=== PATIENT | male | born 1950 | race Caucasian/White ===

== ENCOUNTER 2016-09-16 05:38 | Inpatient (IN) | payer OTHER ==
[2016-09-16] MEDS ORDERED: LIDOCAINE 1% 2 ML INJ ONE (06:11)
[2016-09-16] MEDS ORDERED: LIDOCAINE 1% 5 ML SDV ID PRN (06:20)
[2016-09-16] MEDS ORDERED: LR 1,000 ML IV ONE (06:20)
[2016-09-16 06:38] LABS: % IMMATURE GRANULYOCYTES 0.3 % (0.0-1.1); ABSOLUTE IMMATURE GRANULOCYTES 0.03 10^3/uL (0.00-0.10); ADD DIFF? NO; ADD MORPH? NO; ADD SCAN? NO; ATYPICAL LYMPHOCYTE FLAG 10 (0-99); FRAGMENT RBC FLAG 0 (0-99); HEMATOCRIT 42.6 % (40.0-51.0); HEMOGLOBIN 14.7 g/dL (13.7-17.5); LEFT SHIFT FLG 0 (0-99); LIPEMIA HEMOLYSIS FLAG 90 (0-99); MEAN CELL HEMOGLOBIN 31.2 pg (27.9-34.1); MEAN CELL HEMOGLOBIN CONCENTR. 34.5 g/dL (32.4-36.7); MEAN CELL VOLUME 90.4 fL (81.5-99.8); MEAN PLATELET VOLUME 10.4 fL (8.7-11.7); PLATELET CLUMPS FLAG 10 (0-99); PLATELET COUNT 245 10^3/uL (150-400); RED BLOOD CELL COUNT 4.71 10^6/uL (4.40-6.38); RED CELL DISTRIBUTION WIDTH 11.8 % (11.5-15.2)
[2016-09-16] MEDS ORDERED: PROPOFOL 200 MG/20 ML VIAL ONE ×6 (06:59→09:25)
[2016-09-16] MEDS ORDERED: DEXAMETHASONE 4 MG/ML VIAL IVP ONE (07:00)
[2016-09-16] MEDS ORDERED: FAMOTIDINE 20 MG TAB PO ONE (07:00)
[2016-09-16] MEDS ORDERED: CHLORHEXIDINE GLUC HIBICLENS 118 ML BTL TP ONE (07:00)
[2016-09-16] MEDS ORDERED: TRANEXAMIC ACID 700 MG in NS 100 ML IV ONE (07:00)
[2016-09-16] MEDS ORDERED: ACETAMINOPHEN 325 MG TAB PO ONE (07:00)
[2016-09-16] MEDS ORDERED: ROPI/epiNEPH/KETOROLAC JOINT COCKTAIL IU ONE (07:00)
[2016-09-16] MEDS ORDERED: VANCOMYCIN HCL/NORMAL SALINE 250 ML IV ONE ×2 (07:00→19:30)
[2016-09-16] MEDS ORDERED: ONDANSETRON 4 MG/2 ML VIAL IVP PRN ×2 (07:08→10:09)
[2016-09-16] MEDS ORDERED: ONDANSETRON DISINTEGRATING 4 MG TAB PO PRN ×2 (07:08→10:09)
[2016-09-16] MEDS ORDERED: MIDAZOLAM 2 MG/2 ML VIAL ONE (07:22)
[2016-09-16] MEDS ORDERED: ceFAZolin 1 GM/5 ML SYR ONE (07:46)
[2016-09-16] MEDS ORDERED: BISACODYL 10 MG SUPP PR PRN (10:09)
[2016-09-16] MEDS ORDERED: LACTULOSE 20 GM/30 ML UDCUP PO PRN (10:09)
[2016-09-16] MEDS ORDERED: TEMAZEPAM 15 MG CAP PO PRN (10:09)
[2016-09-16] MEDS ORDERED: PHARMACY PAIN CONSULT 1 EA MISC PRN (10:09)
[2016-09-16] MEDS ORDERED: CYCLOBENZAPRINE 10 MG TAB PO PRN (10:09)
[2016-09-16] MEDS ORDERED: POLYETHYLENE GLYCOL 3350 17 GM PKT PO PRN (10:09)
[2016-09-16] MEDS ORDERED: DIPHENOXYLATE/ATROPINE LOMOTIL 1 TAB PO PRN (10:09)
[2016-09-16] MEDS ORDERED: diphenhydrAMINE 25 MG CAP PO PRN (10:09)
[2016-09-16] MEDS ORDERED: MAGNESIUM HYDROXIDE 30 ML UDCUP PO PRN (10:09)
[2016-09-16] MEDS ORDERED: fentaNYL 100 MCG/2 ML INJ ONE (10:10)
--- NOTE | 2016-09-16 10:18 | SUROPNOTE ---
[facility] Operative Report - Surgery preop diagnosis: severe osteoarthritis left knee postop diagnosis: same surgeon: Adama House MD Asst: Ellen Mcfadden Anesthesia: spinal Procedure: Left total knee arthroplasty Complications: none Patient tolerated procedure well, stable to PACU
[2016-09-16] MEDS ORDERED: LR 1,000 ML IV SCH (10:30)
[2016-09-16] MEDS ORDERED: HYDROmorphONE/DILAUDID 1 MG/ML SYR ONE (10:49)
[2016-09-16] MEDS: OXYCODONE/APAP 5/325 TAB PO PRN ×5 (11:48→23:06)
--- NOTE | 2016-09-16 12:18 | GOP ---
[f rep st] OPERATIVE REPORT DATE OF OPERATION: 09/16/2016 SURGEON: Adama House MD [employer] SUPERVISOR: Ellen Mcfadden. Use of a pediatric physician assistant was required for retraction and surgical exposure. ANESTHESIA: Spinal. PREOPERATIVE DIAGNOSIS: Severe osteoarthritis of the left knee. POSTOPERATIVE DIAGNOSIS: Severe osteoarthritis of the left knee. PROCEDURE PERFORMED: Left total knee arthroplasty. FINDINGS: INDICATIONS: This is an active 66-year-old male with progressive and severe pain and disability in his left knee secondary to progressive osteoarthritis. He has failed nonoperative treatment and is being admitted for surgical care. DESCRIPTION OF PROCEDURE: After an adequate spinal anesthetic was obtained and IV antibiotics were administered, the patient's left lower extremity was prepped and draped in the usual sterile fashion . The limb was exsanguinated with the Esmarch and tourniquet elevated to 300 mmHg of pressure. The [employer] leg holding device was utilized with adequate padding. A midline incision was placed over the left knee, well lateral to his previous open meniscectomy sca r at age 17. Dissection was carried down through the subcutaneous tissues. Hemostasis was obtained using electrocautery. A medial arthrotomy was performed. The patella was dislocated laterally and the joint inspected. There was severe upmu-ft-[id number] osteoarthritis involving the medial and patello femoral compartments with osteophytes. These were removed. Medial and lateral meniscal remnants we re excised as was the ACL. The intramedullary canal of the distal femur was entered. The intramedullary distal femoral cutting jig was utilizing, 9 mm of the distal femur was resected in a 5-degree valgus alignment. The femur was sized to a 6 narrow component. The anterior, posterior cutting jig was applied and ap proximately 3-degrees of external rotation, commensurate with the transepicondylar access. The ante rior, posterior, and chamfers cuts were performed in a routine fashion. The intramedullary tibial cutting jig was now applied, approximately 9 mm of the proximal tibial was now resected, perpendicular to the long axis of the tibia with 3-degrees of posterior slope preserv ing the posterior cruciate ligament. The tibia was sized to a 5 component. A trial reduction was now performed using a 6 narrow femur, 5 tibia with a 9 mm insert. This result ed in full extension and flexion with excellent varus and valgus stability through a full range of m otion. The knee was well-balanced. The patella was measured and 9 mm resected. This was sized to a 35 component. The patellar lug hol es were drilled and the 35 mm patellar trial insert was placed and the knee again placed through a f ull range of motion. Patellar tracking was normal. Tibial tray rotation was marked. Femoral lug h oles were punched. The proximal tibia was prepared with a keel punch in a routine fashion. The first batch of cement was mixed and proximal tibia prepared with pulsatile lavage. The size 5 t ibial tray was impacted into place and held firm while the cement cured. Extra cement was removed. A bone plug was placed in the distal femur. The distal femoral and patellar surfaces were prepared with pulsatile lavage while the second batch of cement was mixed. The size 6 narrow femoral component was impacted into place. Excess cement was removed and the knee extended with a trial insert while the cement cured on the femur. The 35 mm patellar button was ce mented into place and held firm with a patellar clamp while the cement cured. Excess cement was rem jacki. Again, a trial reduction was performed using a 9 mm insert. This resulted in full extension and fle xion with excellent varus and valgus stability through a full range of motion and normal patellar tr acking. After further copious irrigation with pulsatile lavage, the final 9 mm insert was impacted into place, and again excellent range of motion and stability was confirmed. The tourniquet was deflated after 78 minutes of tourniquet time. Hemostasis was obtained using elec trocautery. The medial arthrotomy was closed using #2 FiberWire and #1 Vicryl sutures. A 1/8-inch drain was left in place intra-articularly. Subcutaneous closure was performed using interrupted 2-0 Vicryl sutures and skin closed using stainless steel ted. A cocktail comprised of ropivacaine 0.2% of 80 mg with 1:1000 epinephrine as well as Ketoralac 30 mg was injected. Sterile dressings were applied followed by an Alex wrap. There were no complications. The patient tolerated the procedure well and returned to the recovery room in stable condition. IMPLANTS UTILIZED: 1. [employer] size 6 narrow left cruciate-retaining Legion Oxinium femoral component. 2. [employer] size 5 Lynette II left nonporous tibial baseplate. 3. [employer] size 5, 9 mm Legion CR XLPE high-flexion articular insert. 4. [employer] 35 mm Lynette II resurfacing patellar component. /[id number]/MODL
[2016-09-16 13:45] VITALS: RESP 16
[2016-09-16] MEDS: WARFARIN SODIUM 5 MG TAB PO SCH (16:28)
[2016-09-16] MEDS: FAMOTIDINE 20 MG TAB PO SCH (20:50)
[2016-09-16] MEDS: SENNOSIDES/DOCUSATE SODIUM TAB PO SCH (20:50)
[2016-09-17] MEDS: OXYCODONE/APAP 5/325 TAB PO PRN ×2 (04:30→08:28)
[2016-09-17 04:48] LABS: HEMATOCRIT 35.4 % (40.0-51.0)
[2016-09-17 04:56] LABS: INR 1.32 (0.83-1.16); PROTIME(PATIENT) 16.4 SEC (12.0-15.0)
[2016-09-17 07:20] VITALS: BP 129/88; TEMP 98.1
[2016-09-17] MEDS: FAMOTIDINE 20 MG TAB PO SCH (08:27)
[2016-09-17] MEDS: SENNOSIDES/DOCUSATE SODIUM TAB PO SCH (08:27)
[2016-09-17] MEDS ORDERED: oxyCODONE IR 5 MG TAB PO PRN (08:29)
[2016-09-17] MEDS ORDERED: ACETAMINOPHEN 325 MG TAB PO PRN (08:31)
--- NOTE | 2016-09-17 08:41 | SOAPPROG ---
SOAP Progress Note Assessment/Plan: Assessment/Plan: s/p L TKA POD#1 - Continue pain management - Continue PT/OT - Continue 24 hours of antibiotic prophylaxis - Warfarin for VTE chemoprophylaxis - SCDs/TEDs for mechanical prophylaxis - Drain removal today - Change dressing as needed - Likely discharge home today with PT approval Plan: 09/17/16 08:39 Subjective: Pt states he is doing well. Pain is a 5/10. He was OOB yesterday with PT. Pt denies fever, chills, chest pain, SOB, abdominal pain, N/V/D, numbness, tingling , and calf pain. Objective: Vital Signs Temp Pulse Resp BP Pulse Ox 36.7 C 64 16 129/88 H 96 09/17/16 07:20 09/17/16 07:20 09/17/16 07:20 09/17/16 07:20 09/17/16 07:20 Laboratory Results 09/17/16 04:13 09/16/16 09/17/16 09/18/16 05:59 05:59 05:59 Intake Total 2410 Output Total 1640 Balance 770 PT 16.4 SEC (12.0-15.0) H 09/17/16 04:13 INR 1.32 (0.83-1.16) H 09/17/16 04:13 Physical Exam - Physical Exam General Appearance: alert, no apparent distress Peripheral Pulses: 2+: dorsalis-pedis (R), dorsalis-pedis (L) Skin: normal color, warm/dry, other (Incision site c/d/i; drain in place) Extremities: normal inspection, normal capillary refill, swelling (local swelling of the left knee), other (ROM 10-40, able to perform a SLR), No pedal edema, No calf tenderness Neuro/Psych: no motor/sensory deficits, alert, normal mood/affect, oriented x 3 ICD10 Worksheet Patient Problems: Problems Problem Status Onset Osteoarthritis of left knee Acute - ICD10 Problem Qualifiers (1) Osteoarthritis of left knee Qualifiers: Osteoarthritis type: primary Qualified Code(s): M17.12 - Unilateral primary osteoarthritis, left knee
[2016-09-17 10:37] VITALS: PULSE 67; O2SAT 93
[2016-09-17] MEDS: WARFARIN SODIUM 5 MG TAB PO SCH (11:15)
--- NOTE | 2016-09-18 11:38 | PDDCSUM ---
Discharge Summary Discharge Summary: 66y/o M was admitted for left knee osteoarthritis to undergo a left total knee arthroplasty. He received one dose of Ancef prior to surgery, which was continued for 24-hours post-operatively. Pt was taking coumadin for VTE chemoprophylaxis and SCDs/TEDs in place for mechanical prophylaxis. Pain was well managed. Pt was evaluated by PT, and cleared for discharge home. Hospital course was otherwise uneventful.
== END 2016-09-17 12:07 | disposition home or self-care (01) | DRG 470 ==
LOC: F3N 05:38
PROVIDERS: ADMIT Orthopaedic Surgery Sports Medicine; ATTEND Orthopaedic Surgery Sports Medicine
PROC: 0SRD0J9 Replacement of Left Knee Joint with Synthetic Substitute, Cemented, Open Approach (ICD-10-PCS; principal; 2016-09-16 07:15)
DX: M17.12 Unilateral primary osteoarthritis, left knee (principal); K21.9 Gastro-esophageal reflux disease without esophagitis
CPT/HCPCS: 97110-GP; 97116-GP; 97161-GP; 97165-GO; C1713; G8978-GP-CJ; G8979-GP-CI; G8980-GP-CI; G8987-GO-CI; G8988-GO-CI; G8989-GO-CI; J0171; J1100; J1170; J1885; J2250; J2704; J2795; J3010; J3370

== ENCOUNTER → 2018-01-05 | Outpatient (CLI) | payer OTHER, MEDICARE | LOC: CIMAGING 11:02 | PROVIDERS: ATTEND Nurse Practitioner | DX: R91.8 Other nonspecific abnormal finding of lung field (principal); J43.2 Centrilobular emphysema; F17.290 Nicotine dependence, other tobacco product, uncomplicated; E78.2 Mixed hyperlipidemia | CPT/HCPCS: 71250-PO ==